=== PATIENT | male | born 1990 | race Caucasian/White ===

== ENCOUNTER 2016-08-21 11:49 | Emergency (ER) | payer OTHER | END 2016-08-21 12:24 | disposition home or self-care (01) | LOC: ER1 11:49 | DX: R21 Rash and other nonspecific skin eruption (principal); F17.210 Nicotine dependence, cigarettes, uncomplicated | CPT/HCPCS: 99282 ==

== ENCOUNTER 2020-09-07 15:41 | Emergency (ER) | payer OTHER ==
[2020-09-07] MEDS ORDERED: MEDROL DOSEPAK 24 MG PO (16:43)
[2020-09-07] MEDS ORDERED: CYCLOBENZAPRINE10 MG PO (16:43)
== END 2020-09-07 17:10 | disposition home or self-care (01) ==
LOC: ER1 15:41
DX: M54.12 Radiculopathy, cervical region (principal); F17.210 Nicotine dependence, cigarettes, uncomplicated
CPT/HCPCS: 96372; 99283

== ENCOUNTER → 2021-08-07 | Emergency (ER) | payer OTHER ==
[~2021-08-07] MED LIST: CYCLOBENZAPRINE10 MG PO; MEDROL DOSEPAK 24 MG PO
[2021-08-07 22:25] LABS: HEMOGLOBIN 16.6 gm/dl (14.0-17.5); RED BLOOD COUNT 5.26 M/UL (4.20-5.50); WHITE BLOOD COUNT 12.1 K/UL (4.5-11.0)
[2021-08-07 22:51] LABS: BUN/CREATININE RATIO 22 (0-10)
== END | disposition left against medical advice (07) ==
LOC: ER1 22:05
DX: R10.30 Lower abdominal pain, unspecified (principal); R11.2 Nausea with vomiting, unspecified; F17.210 Nicotine dependence, cigarettes, uncomplicated
CPT/HCPCS: 80053; 81001; 83690; 85025; 99281